=== PATIENT | male | born 1970 | race Hispanic/Latino ===

== ENCOUNTER 2018-03-30 18:50 | Observation (INO) | payer OTHER ==
--- NOTE | 2018-03-30 19:16 | ED PDOC ---
Arrival/HPI - General Chief Complaint: Chest Pain Time Seen by Provider: 03/30/18 18:57 Historian: Patient - History of Present Illness Time/Duration: Other (3 days) Symptom Onset: Gradual Symptom Course: Unchanged Severity Level: Mild Activities at Onset: Rest Associated Symptoms (Text): 03/30/18 19:13 Patient complains of a three-day history of left-sided intermittent chest pain. Lasts on the order of hours. Today he had some associated dizziness and lightheadedness and became concerned and came to the emergency department. No dyspnea. No diaphoresis. No nausea or vomiting. There is a history of hyperlipidemia and hypertension. His paternal grandfather of an [place] at age 42. He thought that it was gas. He took some [id number] Prilosec and also some Gas-X and had some possible improvement. He is currently pain-free. He did take aspirin 2 hours prior to arrival after googling his symptoms. Past Medical History - Infectious Disease Hx of Infectious Diseases: None - Cardiac Hx Hypertension: Yes - Psychiatric Hx Substance Use: No - Anesthesia Hx Anesthesia: No Family/Social History - Physician Review Nursing Documentation Reviewed: Yes Family/Social History: Unknown Family HX Smoking Status: Never Smoked Hx Alcohol Use: Yes Frequency of alcohol use: Socially Hx Substance Use: No Allergies/Home Meds Allergies/Adverse Reactions: Allergies No Known Allergies Allergy (Verified 03/30/18 18:57) Review of Systems - Physician Review All systems were reviewed & negative as marked: Yes - Review of Systems Constitutional: Normal Respiratory: Normal Cardiovascular: Chest Pain. absent: Palpitations, Edema, Syncope Gastrointestinal: absent: Abdominal Pain, Diarrhea, Nausea, Vomiting Genitourinary Male: absent: Dysuria, Frequency, Hematuria Neurological: Dizziness. absent: Headache, Focal Weakness, Gait Changes Physical Exam Vital Signs Temp Pulse Resp BP Pulse Ox 03/30/18 19:03 98.5 F 98 H 16 138/77 100 Temperature: Afebrile Blood Pressure: Normal Pulse: Regular Respiratory Rate: Normal Appearance: Positive for: Well-Appearing, Non-Toxic, Comfortable, Other (anxious) Pain Distress: None Mental Status: Positive for: Alert and Oriented X 3 Finger Stick Blood Glucose: 122 - Systems Exam Head: Present: Atraumatic, Normocephalic Pupils: Present: PERRL Extroacular Muscles: Present: EOMI Conjunctiva: Present: Normal Mouth: Present: Moist Mucous Membranes Pharnyx: No: ERYTHEMA, EXUDATE, TONSILS ENLARGED Neck: Present: Normal Range of Motion Respiratory/Chest: Present: Clear to Auscultation, Good Air Exchange. No: Respiratory Distress, Accessory Muscle Use, Tender to Palpation Cardiovascular: Present: Regular Rate and Rhythm, Normal S1, S2. No: Murmurs Abdomen: No: Tenderness, Distention, Peritoneal Signs, Rebound, Guarding Upper Extremity: Present: Normal Inspection. No: Cyanosis, Edema Lower Extremity: Present: Normal Inspection. No: Edema Neurological: Present: GCS=15, CN II-XII Intact, Speech Normal, Motor Func Grossly Intact Skin: Present: Warm, Dry, Normal Color. No: Rashes Psychiatric: Present: Alert, Oriented x 3, Normal Insight, Normal Concentration Medical Decision Making ED Course and Treatment: 03/30/18 19:16 EKG shows normal sinus rhythm rate approximately [address] or T-wave changes. 03/30/18 20:12 Discussed with the certified medical dosimetrist and house physician and patient will be placed on telemetry observation on the hospitalist service. - Lab Interpretations Lab Results: Lab Results 03/30/18 19:07: POC Glucose (mg/dL) 122 H - RAD Interpretation Radiology Orders: 03/30/18 19:12 CHEST PORTABLE [RAD] Stat Chest one view shows no infiltrate effusion or cardiomegaly. Membership Counselor: ED Physician Disposition/Present on Arrival - Present on Arrival Any Indicators Present on Arrival: No History of DVT/PE: No History of Uncontrolled Diabetes: No Urinary Catheter: No History of Decub. Ulcer: No History Surgical Site Infection Following: None - Disposition Have Diagnosis and Disposition been Completed?: Yes Diagnosis: Chest pain Disposition: HOSPITALIZED Disposition Time: 20:13 Patient Plan: Observation, Telemetry Condition: GOOD Discharge Instructions (ExitCare): Chest Pain (ED) Forms: Remote (Sami)
[2018-03-30 19:17] VITALS: BMI 27.1
[2018-03-30 19:36] LABS: BASO # 0.01 K/mm3 (0.0-2.0); BASO % 0.2 % (0.0-3.0); EOS # 0.2 (0.0-0.7); EOS % 3.5 % (1.5-5.0); GRAN # 3.1 (1.4-6.5); GRAN % 48.8 % (50.0-68.0); HEMOGLOBIN 13.8 g/dL (14.0-18.0); LYMPH # 2.6 (1.2-3.4); MEAN CELL VOLUME 85.6 fl (80.0-105.0); MEAN CORPUSCULAR HEMOGLOBIN 29.7 pg (25.0-35.0); MEAN CORPUSCULAR HGB CONC 34.8 g/dl (31.0-37.0); MEAN PLATELET VOLUME 10.6 fl (7.0-11.0); MONO # 0.4 (0.1-0.6); MONO % 6.5 % (1.0-6.0); RBC 4.64 10^6/uL (3.5-6.1); RED CELL DISTRIBUTION WIDTH 13.3 % (11.5-14.5); WHITE BLOOD COUNT 6.3 10^3/uL (4.5-11.0)
[2018-03-30 19:52] LABS: ALB/GLOB RATIO 1.5 (1.1-1.8); ALBUMIN 4.4 g/dL (3.0-4.8); ALT/SGPT 46 U/L (7-56); AST/SGOT 28 U/L (17-59); BLOOD UREA NITROGEN 18 mg/dL (7-21); CALCIUM 9.3 mg/dL (8.4-10.5); GFR NON-AFRICAN AMERICAN > 60
[2018-03-30 20:03] LABS: TROPONIN I < 0.01 ng/mL
--- NOTE | 2018-03-30 21:41 | CP.PCM.HP ---
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 The episode of chest pain was associated w/ dizziness hence he decided to come in this evening to ED. Not worse w/ eating, no diaphoresis, no dyspnea, Patient took gas-x which provided him w/ minimal relief; he reports no change in diet. He does report a history of GERD for whihc he takes OTC Prilosec. He also reports a dull pain in his throat which is not assoc w/ his chest pain. 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 Allergies: NKDA FamHx: Grandfather [place] 46 Present on Admission - Present on Admission Any Indicators Present on Admission: No Past Patient History - Infectious Disease Hx of Infectious Diseases: None - Past Social History Smoking Status: Never Smoked - CARDIAC Hx Hypertension: Yes - PSYCHIATRIC Hx Substance Use: No - ANESTHESIA Hx Anesthesia: No Meds Allergies/Adverse Reactions: Allergies Allergy/AdvReac Type Severity Reaction Status Date / Time No Known Allergies Allergy Verified 03/30/18 18:57 Physical Exam - Constitutional Appears: Well, Non-toxic, No Acute Distress - Head Exam Head Exam: ATRAUMATIC, NORMAL INSPECTION, NORMOCEPHALIC - Eye Exam Eye Exam: EOMI, Normal appearance, PERRL. absent: Scleral icterus - ENT Exam ENT Exam: Mucous Membranes Moist, Normal Exam - Respiratory Exam Respiratory Exam: Clear to Auscultation Bilateral, NORMAL BREATHING PATTERN. absent: Rales, Rhonchi, Wheezes - Cardiovascular Exam Cardiovascular Exam: RRR, +S1, +S2. absent: Systolic Murmur - GI/Abdominal Exam GI & Abdominal Exam: Normal Bowel Sounds, Soft. absent: Tenderness - Extremities Exam Extremities exam: Positive for: pedal pulses present - Neurological Exam Neurological exam: Alert, CN II-XII Intact, Oriented x3 - Skin Skin Exam: Dry, Intact, Normal Color, Warm Results - Vital Signs Recent Vital Signs: Last Vital Signs Temp 98.5 F 03/30/18 19:03 Pulse 61 03/30/18 21:06 Resp 18 03/30/18 21:06 BP 134/98 H 03/30/18 21:06 Pulse Ox 99 03/30/18 21:06 - Labs Result Diagrams: 03/30/18 19:24 03/30/18 19:24 Labs: Laboratory Results - last 24 hr 03/30/18 03/30/18 03/30/18 19:07 19:24 19:24 WBC 6.3 RBC 4.64 Hgb 13.8 L Hct 39.7 L MCV 85.6 MCH 29.7 MCHC 34.8 RDW 13.3 Plt Count 162 MPV 10.6 Gran % 48.8 L Lymph % (Auto) 41.0 H [place] % (Auto) 6.5 H Eos % (Auto) 3.5 Baso % (Auto) 0.2 Gran # 3.10 Lymph # (Auto) 2.6 [place] # (Auto) 0.4 Eos # (Auto) 0.2 Baso # (Auto) 0.01 Sodium 139 Potassium 4.0 Chloride 104 Carbon Dioxide 28 Anion Gap 12 BUN 18 Creatinine 1.1 Est GFR ( Amer) > 60 Est GFR (Non-Af Amer) > 60 POC Glucose (mg/dL) 122 H Random Glucose 108 Calcium 9.3 Magnesium 2.0 Total Bilirubin 0.4 AST 28 ALT 46 Alkaline Phosphatase 63 Lactate Dehydrogenase 381 Total Creatine Kinase 88 Troponin I < 0.01 Total Protein 7.4 Albumin 4.4 Globulin 3.0 Albumin/Globulin Ratio 1.5 Assessment & Plan - Assessment and Plan (Free Text) Assessment: 47M w/ PMH of HTN HLD GERD presented to [facility] ED 03/30 w/ 3 days of chest pain. Patient will be admitted for observation and ACS r/o Plan: ACS R/o: CXR wnl Initial Trop Negative Trend Trop Q6H x2 Initial EKG NSR w/ ST/T Wave changes Start ASA 81 QD Lipitor 40 QD Follow up EKG in AM Follow up Echo in AM A1C pending Lipid Panel Pending TSH Pending Cardiology consulted, appreciate reccs Hx HTN: Start Cozaar 50QD Patient was seen, examined, discussed w/ attending Dr. 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
[2018-03-31 00:22] VITALS: RESP 18
[2018-03-31 07:45] VITALS: O2SAT 96
[2018-03-31 08:13] LABS: BASO # 0.01 K/mm3 (0.0-2.0); BASO % 0.2 % (0.0-3.0); EOS # 0.2 (0.0-0.7); EOS % 3.2 % (1.5-5.0); GRAN # 2.36 (1.4-6.5); GRAN % 47.7 % (50.0-68.0); HEMOGLOBIN 13.4 g/dL (14.0-18.0); MEAN CORPUSCULAR HEMOGLOBIN 29.6 pg (25.0-35.0); MEAN CORPUSCULAR HGB CONC 34.8 g/dl (31.0-37.0); MEAN PLATELET VOLUME 10.4 fl (7.0-11.0); MONO # 0.4 (0.1-0.6); MONO % 7.9 % (1.0-6.0); RBC 4.53 10^6/uL (3.5-6.1); RED CELL DISTRIBUTION WIDTH 13.1 % (11.5-14.5)
--- NOTE | 2018-03-31 08:23 | RAD ---
Date of service: 03/30/2018 HISTORY: cp COMPARISON: No prior. FINDINGS: LUNGS: No active pulmonary disease. PLEURA: No significant pleural effusion identified, no pneumothorax apparent. CARDIOVASCULAR: No aortic atherosclerotic calcification present. Normal cardiac size. No pulmonary vascular congestion. OSSEOUS STRUCTURES: No significant abnormalities. VISUALIZED UPPER ABDOMEN: Normal. OTHER FINDINGS: None. IMPRESSION: No active disease.
[2018-03-31 08:37] LABS: TROPONIN I < 0.01 ng/mL
[2018-03-31 08:40] LABS: LDL CHOLESTEROL 96 mg/dL (0-129)
[2018-03-31 08:46] LABS: ALB/GLOB RATIO 1.3 (1.1-1.8); ALBUMIN 4.1 g/dL (3.0-4.8); ALT/SGPT 44 U/L (7-56); AST/SGOT 28 U/L (17-59); BLOOD UREA NITROGEN 13 mg/dL (7-21); CALCIUM 9.4 mg/dL (8.4-10.5); GFR NON-AFRICAN AMERICAN > 60; HDL CHOLESTEROL 28 mg/dL (29-60)
[2018-03-31 12:04] VITALS: BP 132/92; TEMP 97.9
--- NOTE | 2018-03-31 13:22 | CARD ---
APPROVED REPORT Date of service: 03/31/2018 EXAM: Two-dimensional and M-mode echocardiogram with Doppler and color Doppler. INDICATION CP 2D DIMENSIONS IVSd1.3 (0.7-1.1cm)LVDd4.3 (3.9-5.9cm) PWd1.4 (0.7-1.1cm)LVDs2.8 (2.5-4.0cm) FS (%) 34.4 %LVEF (%)63.8 (>50%) M-Mode DIMENSIONS Left Atrium (MM)4.50 (2.5-4.0cm)Aortic Root2.90 (2.2-3.7cm) Aortic Cusp Exc.1.90 (1.5-2.0cm) Aortic Valve AoV Peak Ngdvupjy468.0cm/Leatha Peak GR.8mmHg Mitral Valve MV E Ytpehjgr43.0cm/sMV A Piregcpy57.7cm/sE/A ratio1.2 TDI Lateral E' Peak V10.90cm/sMedial E' Peak V8.38cm/sE/Lateral E'7.1 E/Medial E'9.2 Tricuspid Valve TR Peak Owrgzhmm832hv/sRAP [id number] Peak Gr.25mmHg [id number] LEFT VENTRICLE The left ventricle is normal size. There is normal left ventricular wall thickness. The left ventricular function is normal. The left ventricular ejection fraction is within the normal range. There is normal LV segmental wall motion. The left ventricular diastolic function is normal. RIGHT VENTRICLE The right ventricle is normal size. There is normal right ventricular wall thickness. The right ventricular systolic function is normal. ATRIA The left atrium is mildly dilated. The right atrium size is normal. AORTIC VALVE The aortic valve is normal in structure. No aortic regurgitation is present. There is no aortic valvular stenosis. MITRAL VALVE The mitral valve is normal in structure. Mitral regurgitation is trace. There is no mitral valve stenosis. TRICUSPID VALVE The tricuspid valve is normal in structure. There is trace tricuspid regurgitation. There is mild pulmonary hypertension. PULMONIC VALVE The pulmonary valve is normal in structure. There is no pulmonic valvular regurgitation. GREAT VESSELS The aortic root is mildly enlarged. PERICARDIAL EFFUSION There is no pericardial effusion. <Conclusion> The left ventricle is normal size. There is normal left ventricular wall thickness. The left ventricular function is normal. The left ventricular ejection fraction is within the normal range. There is normal LV segmental wall motion. The left ventricular diastolic function is normal. There is mild pulmonary hypertension.
[2018-03-31] MEDS ORDERED: Iohexol 350 MG/100 ML VIAL ONE (14:32)
--- NOTE | 2018-03-31 15:18 | CP.PCM.PN ---
Addendum entered and electronically signed by Fernando Leon DO 03/31/18 17:05: Please disregard this note Original Note: <Fernando Leon - Last Filed: 03/31/18 15:13> Subjective - Date & Time of Evaluation Date of Evaluation: 03/31/18 Time of Evaluation: 15:13 - Subjective Subjective: Fernando Leon DO PGY-[address] Ibarra: Pt was seen and examined at bedside this AM. Pt states that his chest pain is improving, but is still present. He admits to having a lot of gas and that gas-x has helped with similar pain in the past. He states that the pain is more of a discomfort. He is currently denying fevers, chills, nausea, vomiting, SOB, cough, diaphoresis or any radiating pain. Objective - Vital Signs/Intake and Output Vital Signs (last 24 hours): Temp Pulse Resp BP Pulse Ox 97.9 F 63 18 132/92 H 96 03/31/18 12:00 03/31/18 12:00 03/31/18 12:00 03/31/18 12:00 03/31/18 06:00 Intake and Output: 03/31/18 03/31/18 06:59 18:59 Intake Total 120 Balance 120 - Medications Medications: Current Medications Aspirin (Ecotrin) 81 mg PO DAILY [facility] Last Admin: 03/31/18 09:58 Dose: 81 mg Atorvastatin Calcium (Lipitor) 40 mg PO DIN [facility] Last Admin: 03/30/18 23:58 Dose: 40 mg Famotidine (Pepcid) 20 mg PO 1000,2200 [facility] Last Admin: 03/31/18 09:58 Dose: 20 mg Heparin Sodium (Porcine) (Heparin) 5,000 units SC Q12 [facility]; Protocol Last Admin: 03/31/18 14:14 Dose: Not Given Losartan Potassium (Cozaar) 50 mg PO DAILY [facility] Last Admin: 03/31/18 09:59 Dose: 50 mg - Labs Labs: 03/31/18 08:00 03/31/18 08:00 - Constitutional Appears: Well, Non-toxic, No Acute Distress - Head Exam Head Exam: ATRAUMATIC, NORMAL INSPECTION, NORMOCEPHALIC - Eye Exam Eye Exam: EOMI, Normal appearance Pupil Exam: PERRL - Respiratory Exam Respiratory Exam: Clear to Ausculation Bilateral, NORMAL BREATHING PATTERN. absent: Accessory Muscle Use, Chest Wall Tenderness, Decreased Breath Sounds, Rales, Rhonchi, Wheezes, Respiratory Distress, Stridor - Cardiovascular Exam Cardiovascular Exam: RRR, +S1, +S2. absent: Gallop, Rubs - GI/Abdominal Exam GI & Abdominal Exam: Soft, Normal Bowel Sounds. absent: Tenderness - Extremities Exam Extremities Exam: Full ROM, Normal Capillary Refill, Normal Inspection. absent: Pedal Edema, Tenderness - Back Exam Back Exam: tenderness. absent: CVA tenderness (L), CVA tenderness (R) - Neurological Exam Neurological Exam: Alert, Awake, Oriented x3 - Psychiatric Exam Psychiatric exam: Normal Affect, Normal Mood - Skin Skin Exam: Dry, Intact, Normal Color, Warm Assessment and Plan - Assessment and Plan (Free Text) Assessment: 47M w/ PMH of HTN HLD GERD presented to [facility] [place] [place] ED 03/30 w/ 3 days of chest pain. Patient will be admitted for observation and ACS r/o. Pt had D-dimer done and is read as positive. Will f/u with CTA to r/o PE Plan: 1. ACS R/o: - CXR wnl - Trops are (-): <.01 x 3. - Initial EKG NSR without ST/T Wave changes - Cont ASA 81 QD - Lipitor 40 QD - Follow up Echo in AM - Lipid Panel - TG, are wnl. LDL is 96 and HDL is low at 28. - TSH wnl - Cardiology consulted, appreciate recs 2. Elevated D-Dimer: - F/u CTA report 3. Hx HTN: - Start Cozaar 50QD <Zacarias Ibarra - Last Filed: 03/31/18 17:26> Objective - Vital Signs/Intake and Output Vital Signs (last 24 hours): Temp Pulse Resp BP Pulse Ox 97.9 F 67 18 132/92 H 96 03/31/18 12:00 03/31/18 14:00 03/31/18 12:00 03/31/18 12:00 03/31/18 06:00 Intake and Output: 03/31/18 03/31/18 06:59 18:59 Intake Total 120 Balance 120 - Medications Medications: Current Medications Aspirin (Ecotrin) 81 mg PO DAILY [facility] Last Admin: 03/31/18 09:58 Dose: 81 mg Atorvastatin Calcium (Lipitor) 40 mg PO DIN [facility] Last Admin: 03/31/18 17:21 Dose: Not Given Famotidine (Pepcid) 20 mg PO 1000,2200 [facility] Last Admin: 03/31/18 09:58 Dose: 20 mg Heparin Sodium (Porcine) (Heparin) 5,000 units SC Q12 [facility]; Protocol Last Admin: 03/31/18 14:14 Dose: Not Given Losartan Potassium (Cozaar) 50 mg PO DAILY [facility] Last Admin: 03/31/18 09:59 Dose: 50 mg - Labs Labs: 03/31/18 08:00 03/31/18 08:00 Attending/Attestation - Attestation I have personally seen and examined this patient.: Yes I have fully participated in the care of the patient.: Yes I have reviewed all pertinent clinical information, including history, physical exam and plan: Yes Notes (Text): 03/31/18 17:23 Attending note; Patient seen and examined with resident. Patient is alert and awake. Denies any chest pain, shortness of breath. Denies any abdominal pain, nausea, vomiting. Currently not in any acute distress. Patient is a 47-year-old male with a history of hypertension, HLD and GERD is is admitted for nonspecific chest pain3 days. Patient is attributing it to GERD and gas pain. EKG showed no significant changes. Cardiac enzymes 3 negative. Echocardiogram without significant LV dysfunction. Mildly elevated d-dimer. CT angios negative. Cardiology evaluation appreciated. Patient will be discharged home. Close follow-up with PMD Stephania ROBLERO recommended. The diagnosis, follow-up plan discussed with patient in detail. Patient takes omeprazole at home. Will add Pepcid. Avoid NSAIDs. Continue losartan. 03/31/18 17:26
--- NOTE | 2018-03-31 15:27 | CT ---
Date of service: 03/31/2018 PROCEDURE: CT Chest with contrast (Pulmonary Angiogram) HISTORY: cp COMPARISON: None available. TECHNIQUE: Axial computed tomography images were obtained of the chest in the pulmonary arterial phase of enhancement. Coronal and sagittal reformatted images were created and reviewed. Intravenous contrast dose: 100 cc of Omni 350 Radiation dose: Total exam DLP = 493.81 mGy-cm. This CT exam was performed using one or more of the following dose reduction techniques: Automated exposure control, adjustment of the mA and/or kV according to patient size, and/or use of iterative reconstruction technique. FINDINGS: PULMONARY ARTERIES: Unremarkable. No pulmonary embolism. AORTA: No acute findings. No thoracic aortic aneurysm. No aortic atherosclerotic calcification or mural plaque present. LUNGS: Unremarkable. No nodule, mass or pulmonary consolidation. PLEURAL SPACES: Unremarkable. No effusion or pneumothorax. HEART: Unremarkable. No cardiomegaly. No significant pericardial effusion. LYMPH NODES: No lymphadenopathy. BONES, CHEST WALL: Unremarkable. No fracture or destructive lesion OTHER FINDINGS: Right-sided thyroid nodule measuring 16 x 22 mm IMPRESSION: Unremarkable CT pulmonary angiogram. No pulmonary embolus.
--- NOTE | 2018-03-31 15:37 | CARD ---
APPROVED REPORT Date of service: 03/30/2018 EKG Measurement Heart [id number] <Conclusion> Normal sinus rhythm Normal ECG
[2018-03-31 15:40] VITALS: PULSE 67
--- NOTE | 2018-03-31 15:51 | CP.PCM.DIS ---
<Fernando Leon - Last Filed: 03/31/18 16:52> Provider - Provider Date of Admission: 03/30/18 20:11 Attending physician: Zacarias Ibarra MD Time Spent in preparation of Discharge (in minutes): 45 Diagnosis - Discharge Diagnosis (1) Chest pain Status: Acute Hospital Course - Lab Results Lab Results: Most Recent Lab Values WBC 5.0 10^3/uL (4.5-11.0) D 03/31/18 08:00 RBC 4.53 10^6/uL (3.5-6.1) 03/31/18 08:00 Hgb 13.4 g/dL (14.0-18.0) L 03/31/18 08:00 Hct 38.5 % (42.0-52.0) L 03/31/18 08:00 MCV 85.0 fl (80.0-105.0) 03/31/18 08:00 MCH 29.6 pg (25.0-35.0) 03/31/18 08:00 MCHC 34.8 g/dl (31.0-37.0) 03/31/18 08:00 RDW 13.1 % (11.5-14.5) 03/31/18 08:00 Plt Count 142 10^3/uL (120.0-450.0) 03/31/18 08:00 MPV 10.4 fl (7.0-11.0) 03/31/18 08:00 Gran % 47.7 % (50.0-68.0) L 03/31/18 08:00 Lymph % (Auto) 41.0 % (22.0-35.0) H 03/31/18 08:00 [place] % (Auto) 7.9 % (1.0-6.0) H 03/31/18 08:00 Eos % (Auto) 3.2 % (1.5-5.0) 03/31/18 08:00 Baso % (Auto) 0.2 % (0.0-3.0) 03/31/18 08:00 Gran # 2.36 (1.4-6.5) 03/31/18 08:00 Lymph # (Auto) 2.0 (1.2-3.4) 03/31/18 08:00 [place] # (Auto) 0.4 (0.1-0.6) 03/31/18 08:00 Eos # (Auto) 0.2 (0.0-0.7) 03/31/18 08:00 Baso # (Auto) 0.01 K/mm3 (0.0-2.0) 03/31/18 08:00 D-Dimer, Quantitative 579 ng/mlDDU (0-243) H 03/31/18 11:30 Sodium 141 mmol/L (132-148) 03/31/18 08:00 Potassium 4.1 mmol/L (3.6-5.0) 03/31/18 08:00 Chloride 105 mmol/L (98-107) 03/31/18 08:00 Carbon Dioxide 28 mmol/L (21-33) 03/31/18 08:00 Anion Gap 12 (10-20) 03/31/18 08:00 BUN 13 mg/dL (7-21) 03/31/18 08:00 Creatinine 1.1 mg/dl (0.8-1.5) 03/31/18 08:00 Est GFR ( Amer) > 60 03/31/18 08:00 Est GFR (Non-Af Amer) > 60 03/31/18 08:00 POC Glucose (mg/dL) 122 mg/dL (65-110) H 03/30/18 19:07 Random Glucose 99 mg/dL (70-110) 03/31/18 08:00 Calcium 9.4 mg/dL (8.4-10.5) 03/31/18 08:00 Phosphorus 3.7 mg/dL (2.5-4.5) 03/31/18 08:00 Magnesium 2.0 mg/dL (1.7-2.2) 03/31/18 08:00 Total Bilirubin 0.9 mg/dL (0.2-1.3) 03/31/18 08:00 AST 28 U/L (17-59) 03/31/18 08:00 ALT 44 U/L (7-56) 03/31/18 08:00 Alkaline Phosphatase 55 U/L (38-126) 03/31/18 08:00 Lactate Dehydrogenase 381 U/L (333-699) 03/30/18 19:24 Total Creatine Kinase 88 U/L (35-230) 03/30/18 19:24 Troponin I < 0.01 ng/mL 03/31/18 08:00 Total Protein 7.1 g/dL (5.8-8.3) 03/31/18 08:00 Albumin 4.1 g/dL (3.0-4.8) 03/31/18 08:00 Globulin 3.0 gm/dL 03/31/18 08:00 Albumin/Globulin Ratio 1.3 (1.1-1.8) 03/31/18 08:00 Triglycerides 126 mg/dL (35-160) 03/31/18 08:00 Cholesterol 143 mg/dL (130-200) 03/31/18 08:00 LDL Cholesterol Direct 96 mg/dL (0-129) 03/31/18 08:00 HDL Cholesterol 28 mg/dL (29-60) L 03/31/18 08:00 TSH 3rd Generation 2.55 mIU/mL (0.46-4.68) 03/31/18 08:00 - Hospital Course Hospital Course: Upon Admission: 47M w/ PMH of HTN HLD GERD presented to [facility] 03/30 w/ 3 days of chest pain CP is left sided pressure like non radiating located under his left breast ; not associated w/ exertion; has been on/off described as a squeezing sensation. The episode of chest pain was associated w/ dizziness hence he decided to come in this evening to ED. Not worse w/ eating, no diaphoresis, no dyspnea, Patient took gas-x which provided him w/ minimal relief; he reports no change in diet. He does report a history of GERD for whihc he takes OTC Prilosec. He also reports a dull pain in his throat which is not assoc w/ his chest pain. A 12 system ROS is negative at this time Hospital Course: Pt was being worked up to r/o SC. Echo report shows pts LVEF is wnl, TSH is wnl, Lipid panel shows TG wnl, LDL 96, HDL 28. EKG showed no ST/T wave changes. D- Dimer was assessed and shown to be elevated, but CTA was negative. Cardio cleared the pt and encouraged pt to follow up with pmd. Pt shows understanding and is in agreement with the plan. All pts questions and concerns were addressed before pt was d/aurelio. Upon Discharge: Pt was given explicit instructions to follow up with his PMD within 3-5 days. Pt was prescribed aspirin and pepcid as well as encouraged to take Gas X OTC as it has helped his pain in similar situations in the past. The pt was told to return to the ED if similar symptoms returned, current symptoms worsened or if any new symptoms began. Pt expressed understanding and agreement with the plan to D/c home. Discharge Exam - Head Exam Head Exam: ATRAUMATIC, NORMAL INSPECTION, NORMOCEPHALIC - Eye Exam Eye Exam: EOMI, Normal appearance, PERRL - ENT Exam ENT Exam: Mucous Membranes Moist - Neck Exam Neck exam: Full Rom, Normal Inspection - Respiratory Exam Respiratory Exam: Clear to PA & Lateral, NORMAL BREATHING PATTERN, UNREMARKABLE. absent: Accessory Muscle Use, Chest Wall Tenderness, Rales, Rhonchi, Wheezes, Respiratory Distress, Stridor - Cardiovascular Exam Cardiovascular Exam: RRR, +S1, +S2. absent: Gallop, Rubs - GI/Abdominal Exam GI & Abdominal Exam: Normal Bowel Sounds, Soft, Unremarkable. absent: Firm, Guarding, Tenderness - Extremities Exam Extremities exam: full ROM, normal capillary refill, normal inspection, pedal pulses present - Back Exam Back exam: NORMAL INSPECTION. absent: CVA tenderness (L), CVA tenderness (R) - Neurological Exam Neurological exam: Alert, Oriented x3 - Psychiatric Exam Psychiatric exam: Normal Affect, Normal Mood - Skin Skin Exam: Dry, Intact, Normal Color, Warm Discharge Plan - Discharge Medications Prescriptions: Aspirin [Ecotrin] 81 mg PO DAILY #14 tabec Famotidine [Pepcid] 20 mg PO 1000,2200 #14 tab - Follow Up Plan Condition: GOOD Disposition: HOME/ ROUTINE Instructions: Heart Healthy Diet, D-Dimer Test, Chest Pain (DC), CT Scan, C hest, Troponin Test Additional Instructions: - F/u with your primary care doctor, Dr. morris within 3-5 days after discharge to follow up on any cardiovascular recommendations they may have. - Please continue to take the prescribed medications for 14 days as directed. - You can also use OTC gas x for gas relief if needed - Please return to the Emergency Department if your symptoms worsen or if new symptoms begin. Referrals: Soraya Callahan MD [Staff Provider] - <Zacarias Ibarra - Last Filed: 03/31/18 17:27> Provider - Provider Date of Admission: 03/30/18 20:11 Attending physician: Zacarias Ibarra MD Hospital Course - Lab Results Lab Results: Most Recent Lab Values WBC 5.0 10^3/uL (4.5-11.0) D 03/31/18 08:00 RBC 4.53 10^6/uL (3.5-6.1) 03/31/18 08:00 Hgb 13.4 g/dL (14.0-18.0) L 03/31/18 08:00 Hct 38.5 % (42.0-52.0) L 03/31/18 08:00 MCV 85.0 fl (80.0-105.0) 03/31/18 08:00 MCH 29.6 pg (25.0-35.0) 03/31/18 08:00 MCHC 34.8 g/dl (31.0-37.0) 03/31/18 08:00 RDW 13.1 % (11.5-14.5) 03/31/18 08:00 Plt Count 142 10^3/uL (120.0-450.0) 03/31/18 08:00 MPV 10.4 fl (7.0-11.0) 03/31/18 08:00 Gran % 47.7 % (50.0-68.0) L 03/31/18 08:00 Lymph % (Auto) 41.0 % (22.0-35.0) H 03/31/18 08:00 [place] % (Auto) 7.9 % (1.0-6.0) H 03/31/18 08:00 Eos % (Auto) 3.2 % (1.5-5.0) 03/31/18 08:00 Baso % (Auto) 0.2 % (0.0-3.0) 03/31/18 08:00 Gran # 2.36 (1.4-6.5) 03/31/18 08:00 Lymph # (Auto) 2.0 (1.2-3.4) 03/31/18 08:00 [place] # (Auto) 0.4 (0.1-0.6) 03/31/18 08:00 Eos # (Auto) 0.2 (0.0-0.7) 03/31/18 08:00 Baso # (Auto) 0.01 K/mm3 (0.0-2.0) 03/31/18 08:00 D-Dimer, Quantitative 579 ng/mlDDU (0-243) H 03/31/18 11:30 Sodium 141 mmol/L (132-148) 03/31/18 08:00 Potassium 4.1 mmol/L (3.6-5.0) 03/31/18 08:00 Chloride 105 mmol/L (98-107) 03/31/18 08:00 Carbon Dioxide 28 mmol/L (21-33) 03/31/18 08:00 Anion Gap 12 (10-20) 03/31/18 08:00 BUN 13 mg/dL (7-21) 03/31/18 08:00 Creatinine 1.1 mg/dl (0.8-1.5) 03/31/18 08:00 Est GFR ( Amer) > 60 03/31/18 08:00 Est GFR (Non-Af Amer) > 60 03/31/18 08:00 POC Glucose (mg/dL) 122 mg/dL (65-110) H 03/30/18 19:07 Random Glucose 99 mg/dL (70-110) 03/31/18 08:00 Calcium 9.4 mg/dL (8.4-10.5) 03/31/18 08:00 Phosphorus 3.7 mg/dL (2.5-4.5) 03/31/18 08:00 Magnesium 2.0 mg/dL (1.7-2.2) 03/31/18 08:00 Total Bilirubin 0.9 mg/dL (0.2-1.3) 03/31/18 08:00 AST 28 U/L (17-59) 03/31/18 08:00 ALT 44 U/L (7-56) 03/31/18 08:00 Alkaline Phosphatase 55 U/L (38-126) 03/31/18 08:00 Lactate Dehydrogenase 381 U/L (333-699) 03/30/18 19:24 Total Creatine Kinase 88 U/L (35-230) 03/30/18 19:24 Troponin I < 0.01 ng/mL 03/31/18 08:00 Total Protein 7.1 g/dL (5.8-8.3) 03/31/18 08:00 Albumin 4.1 g/dL (3.0-4.8) 03/31/18 08:00 Globulin 3.0 gm/dL 03/31/18 08:00 Albumin/Globulin Ratio 1.3 (1.1-1.8) 03/31/18 08:00 Triglycerides 126 mg/dL (35-160) 03/31/18 08:00 Cholesterol 143 mg/dL (130-200) 03/31/18 08:00 LDL Cholesterol Direct 96 mg/dL (0-129) 03/31/18 08:00 HDL Cholesterol 28 mg/dL (29-60) L 03/31/18 08:00 TSH 3rd Generation 2.55 mIU/mL (0.46-4.68) 03/31/18 08:00 Attending/Attestation - Attestation I have personally seen and examined this patient.: Yes I have fully participated in the care of the patient.: Yes I have reviewed all pertinent clinical information, including history, physical exam and plan: Yes Notes (Text): 03/31/18 17:26 Attending note; Patient seen and examined with resident. Patient is alert and awake. Denies any chest pain, shortness of breath. Denies any abdominal pain, nausea, vomiting. Currently not in any acute distress. Patient is a 47-year-old male with a history of hypertension, HLD and GERD is is admitted for nonspecific chest pain3 days. Patient is attributing it to GERD and gas pain. EKG showed no significant changes. Cardiac enzymes 3 negative. Echocardiogram without significant LV dysfunction. Mildly elevated d-dimer. CT angios negative. Cardiology evaluation appreciated. Patient will be discharged home. Close follow-up with PMD DR. Chang recommended. The diagnosis, follow-up plan discussed with patient in detail. Patient takes omeprazole at home. Will add Pepcid. Avoid NSAIDs. Continue losartan.
--- NOTE | 2018-03-31 18:32 | CON ---
DATE OF CONSULTATION: 03/31/2018 REASON FOR CONSULTATION: Chest pain. HISTORY OF PRESENT ILLNESS: The patient is a 47-year-old white male who has no significant past medical history, presented because of 3 days' history of intermittent chest discomfort that he attributed to stomach gas. The patient took Gas-X pills without any significant relief and decided to present to the emergency room. The patient denies any retrosternal chest pain at this time. The patient describes the chest pain as left inframammary heaviness without any radiation or associated diaphoresis. MEDICATIONS: Cozaar 50 mg daily, aspirin 81 mg once a day, subcutaneous heparin 5000 units every 12 hours, Lipitor 40 mg once a day, Pepcid 20 mg twice a day. SOCIAL HISTORY: The patient is a nonsmoker. 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 PHYSICAL EXAMINATION: GENERAL: The patient is a middle-aged male, who does not appear to be in any distress. VITAL SIGNS: Blood pressure 124/86, heart rate 70, temperature 97.7, respirations 18. HEENT: Normocephalic. NECK: No JVD. CHEST: Clear. HEART: S1, S2 regular. ABDOMEN: Soft. EXTREMITIES: No edema. LABORATORIES: Hemoglobin and hematocrit 13.4 and 38.5, white count and platelet count are within normal limits. SMA-7: Sodium 141, potassium 4.1, chloride 105, CO2 of 28, glucose 99, BUN 13 and creatinine 1.1. Three sets of troponins are negative. Lipid profile is within normal limits except for HDL cholesterol of 28. EKG revealed normal sinus rhythm at rate of 66. ASSESSMENT: 1. Chest pain. Myocardial infarction is ruled out. 2. Hypertension. 3. Hyperlipidemia. RECOMMENDATIONS: Continue Cozaar 50 mg once a day, aspirin 81 mg once a day, Lipitor 20 mg once a day, Pepcid 20 mg twice a day. Obtain serial D-dimer and I will review the echocardiograph study performed today. Kyle Bhatti MD
== END 2018-03-31 17:29 | disposition home or self-care (01) ==
LOC: ED 18:50 → ERH 20:11 → 2RSO 22:49
PROVIDERS: ADMIT Internal Medicine; ATTEND Internal Medicine
DX: R07.9 Chest pain, unspecified (principal); R14.1 Gas pain; E78.5 Hyperlipidemia, unspecified; I10 Essential (primary) hypertension; K21.9 Gastro-esophageal reflux disease without esophagitis; R79.1 Abnormal coagulation profile
CPT/HCPCS: 36415; 71045; 71275; 80053; 80061; 82550; 82948; 83036; 83615; 83735; 84100; 84443; 84484; 85025; 85378; 93005; 93306; 99285; G0378; Q9967